=== PATIENT | female | born 1990 | race Caucasian/White ===

== ENCOUNTER 2016-07-10 00:14 | Emergency (ER) | payer MEDICAID ==
[~2016-07-10] VITALS: Ht 149.9 cm; Wt 111.4 kg
[2016-07-10] MEDS ORDERED: SODIUM CHLORIDE FLUSH 10 ML SYR IV PRN (00:30)
[2016-07-10] MEDS ORDERED: HYDROmorphone 1 MG/ML (DILAUDID) SYRINGE IV PRN (00:30)
[2016-07-10] MEDS ORDERED: SODIUM CHLORIDE FLUSH 3 ML SYR IV PRN (00:30)
[2016-07-10] MEDS ORDERED: ONDANSETRON 2 MG/ML (Z0FRAN) 2 ML VIAL IV ONE (00:30)
[2016-07-10 01:09] LABS: ANION GAP 13.7 MEQ/L (3-15); CALCULATED IONIZED CALCIUM 3.8 mg/dL (3.8-4.6); TOTAL PROTEIN 7.5 g/dL (6.4-8.5)
[2016-07-10 02:18] VITALS: BP 118/77
--- NOTE | 2016-07-10 02:20 | NUR ---
Patient's ride here to pick her up.
[2016-07-10 09:56] LABS: BASOPHILS % (AUTO) 1 % (0-2); EOSINOPHILS # (AUTO) 0.2 10^3uL; EOSINOPHILS % (AUTO) 1 % (0-4); LYMPHOCYTES # (AUTO) 3.5 X10^3; MEAN CORPUSCULAR HEMOGLOBIN 27.8 PG (26.0-34.0); MEAN CORPUSCULAR HGB CONC 33.8 g/dL (31.0-37.0); MEAN CORPUSCULAR VOLUME 82 FL (80-100); MEAN PLATELET VOLUME 12.5 FL (6.0-9.5); MONOCYTES # (AUTO) 0.8 X10^3; MONOCYTES % (AUTO) 7 % (3-11); NEUTROPHILS # (AUTO) 6.4 X10^3; NEUTROPHILS % (AUTO) 59 % (51-67); PLATELET COUNT 193 10^3uL (150-450); WHITE BLOOD COUNT 10.89 10^3uL (4.0-11.0)
== END 2016-07-10 03:13 | disposition home or self-care (01) ==
LOC: ED 00:15
DX: A08.4 Viral intestinal infection, unspecified (principal)
CPT/HCPCS: 36415; 80053; 82150; 83690; 85025; 96361; 96374; 96375; 99284; J1170; J2405; J7030; 99282